=== PATIENT | male | born 1975 | race Two or more races ===

== ENCOUNTER 2019-04-11 08:48 | Emergency (ER) | payer OTHER, SELFPAY ==
[~2019-04-11] VITALS: Ht 172.7 cm; Wt 86.5 kg
[2019-04-11 08:54] VITALS: BP 128/82
--- NOTE | 2019-04-11 09:04 | NUR ---
PT HERE WITH C/O BODY ACHES AND COUGH X 1 WEEK. PT DENIES GETTING FLU SHOT.
[2019-04-11 09:54] LABS: RAPID INFLUENZA A Negative (Negative); RAPID INFLUENZA B Negative (Negative)
--- NOTE | 2019-04-11 10:09 | NUR ---
Patient/Caregiver given discharge instructions and they have confirmed that they understand the instructions. Patient ambulatory with steady gait.
== END 2019-04-11 10:17 | disposition home or self-care (01) ==
LOC: ED 10:05
DX: B34.9 Viral infection, unspecified (principal)
CPT/HCPCS: 71046; 87400; 99284